=== PATIENT | female | born 1970 | race Caucasian/White ===

== ENCOUNTER 2018-06-21 11:03 | Inpatient (IN) | payer MEDICAID ==
[~2018-06-21] VITALS: Ht 162.6 cm; Wt 55.0 kg
[2018-06-21 11:49] LABS: BASOPHIL % 0.4 % (0-2); PLATELET COUNT 297 x10^3mcL (130-400)
[2018-06-21 12:08] LABS: AMPHETAMINE QUAL UR NONE DETECTED (See below)
[2018-06-21 12:08] LABS: ALBUMIN 3.9 g/dL (3.4-5.0); BILIRUBIN TOTAL 0.1 mg/dL (0.20-1.00); CALCIUM 8.9 mg/dL (8.5-10.1); CARBON DIOXIDE 27.9 mmol/L (21-32); CREATININE SERUM 1.2 mg/dL (0.6-1.0); POTASSIUM SERUM 3.9 mmol/L (3.5-5.1)
[2018-06-21 14:09] VITALS: BP 156/91
[2018-06-21 14:12] VITALS: Ht 162.6 cm; Wt 55.0 kg
[2018-06-21 16:11] LABS: UA SPECIFIC GRAVITY 1.015 (1.005-1.035); microscopic required? YES; urine erythrocyte TRACE (NEGATIVE)
[2018-06-21 16:20] LABS: T3 TOTAL 0.42 ng/mL
[2018-06-21 16:50] LABS: MAGNESIUM 2.2 mg/dL (1.8-2.4); PHOSPHOROUS 3.2 mg/dL (2.5-4.9)
[2018-06-21 16:51] LABS: CHOLESTEROL/HDL RATIO 3.6
[2018-06-21 16:52] LABS: FREE T4 0.21 ng/dL (0.76-1.46); FREE THYROXINE INDEX 0.3 ug/dL (1.4-4.5); T4(THYROXINE) 1.2 ug/dL (4.7-13.3)
[2018-06-21 17:16] VITALS: BP 150/85
[2018-06-21 21:24] VITALS: BP 140/84
[2018-06-22 04:30] LABS: BASOPHIL % 0.8 % (0-2); PLATELET COUNT 257 x10^3mcL (130-400)
[2018-06-22 04:31] LABS: RED CELL DISTRIBUTION WIDTH 16.5 % (11.5-14.5)
[2018-06-22 04:44] VITALS: BP 106/71
[2018-06-22 04:57] LABS: CALCIUM 8.4 mg/dL (8.5-10.1); CARBON DIOXIDE 27.7 mmol/L (21-32); CREATININE SERUM 1.1 mg/dL (0.6-1.0); MAGNESIUM 1.9 mg/dL (1.8-2.4); PHOSPHOROUS 3.1 mg/dL (2.5-4.9); POTASSIUM SERUM 4.1 mmol/L (3.5-5.1)
[2018-06-22 09:13] VITALS: BP 144/96
[2018-06-22 12:30] VITALS: BP 168/118
[2018-06-22 15:09] VITALS: BP 146/76
[2018-06-22 17:06] VITALS: BP 144/80
[2018-06-22 21:16] VITALS: BP 118/79
[2018-06-23] VITALS (8 sets, daily range): BP systolic 141–168; BP diastolic 86–110
[2018-06-23 07:25] LABS: BASOPHIL % 0.6 % (0-2); PLATELET COUNT 290 x10^3mcL (130-400)
[2018-06-23 07:34] LABS: CALCIUM 8.9 mg/dL (8.5-10.1); CARBON DIOXIDE 28.6 mmol/L (21-32); CREATININE SERUM 1.2 mg/dL (0.6-1.0); PHOSPHOROUS 3.3 mg/dL (2.5-4.9); POTASSIUM SERUM 4.3 mmol/L (3.5-5.1)
[2018-06-23] MEDS ORDERED: HYD25 PO (17:53)
[2018-06-23] MEDS ORDERED: TOPROL XL25 MG PO (17:54)
[2018-06-23] MEDS ORDERED: LIPITOR40 MG PO (17:54)
[2018-06-23] MEDS ORDERED: ZESTRIL20 MG PO (17:54)
[2018-06-23] MEDS ORDERED: GOOD SENSE ASPI81 M3 PO (17:55)
== END 2018-06-23 20:42 | disposition short-term general hospital (02) | DRG 190 ==
LOC: ED 11:03 → DU 13:02
PROVIDERS: Emergency Medicine; ADMIT Internal Medicine
DX: I21.4 Non-ST elevation (NSTEMI) myocardial infarction (principal); N17.9 Acute kidney failure, unspecified; E86.1 Hypovolemia; I16.0 Hypertensive urgency; E16.2 Hypoglycemia, unspecified; E78.5 Hyperlipidemia, unspecified; F12.10 Cannabis abuse, uncomplicated; F17.210 Nicotine dependence, cigarettes, uncomplicated; Z68.20 Body mass index [BMI] 20.0-20.9, adult; Z79.82 Long term (current) use of aspirin
CPT/HCPCS: 83880; 84439; 99406; A9500; J1644; J2785; J7030; Q0092

== ENCOUNTER 2019-04-03 00:45 | Emergency (ER) | payer OTHER ==
[~2019-04-03] VITALS: Ht 162.6 cm; Wt 54.9 kg
[~2019-04-03 00:45] MED LIST: GOOD SENSE ASPI81 M3 PO; HYD25 PO; LIPITOR40 MG PO; TOPROL XL25 MG PO; ZESTRIL20 MG PO
[2019-04-03 00:49] VITALS: Ht 162.6 cm; Wt 54.9 kg
[2019-04-03 02:12] LABS: CALCIUM 8.9 mg/dL (8.5-10.1); CARBON DIOXIDE 30.9 mmol/L (21-32); CHLORIDE SERUM 100 mmol/L (98-107); CREATININE SERUM 0.9 mg/dL (0.6-1.0); GFR1 > 60 mL/min; GLUCOSE SERUM 74 mg/dL (74-106); POTASSIUM SERUM 3.9 mmol/L (3.5-5.1); SODIUM SERUM 136 mmol/L (136-145)
[2019-04-03 02:13] LABS: AMPHETAMINE QUAL UR POSITIVE (See below)
[2019-04-03 02:17] LABS: ALBUMIN 3.6 g/dL (3.4-5.0); ALKALINE PHOSPHATASE 124 U/L (46-116); ALT/SGPT 19 U/L (14-59); AST/SGOT 21 U/L (15-37); BILIRUBIN TOTAL 0.24 mg/dL (0.20-1.00); TOTAL PROTEIN, SERUM 8.8 g/dL (6.4-8.2)
[2019-04-03 02:24] LABS: BASOPHIL % 1.6 % (0-2)
[2019-04-03 02:28] LABS: PLATELET COUNT 456 x10^3mcL (130-400); RED CELL DISTRIBUTION WIDTH 17.4 % (11.5-14.5)
[2019-04-03 02:30] LABS: FREE T4 0.22 ng/dL (0.76-1.46)
[2019-04-03 02:34] LABS: FREE THYROXINE INDEX 0.3 ug/dL (1.4-4.5); T4(THYROXINE) 1.4 ug/dL (4.7-13.3)
[2019-04-03 03:18] LABS: T3 TOTAL 0.35 ng/mL
[2019-04-03 03:53] VITALS: BP 160/104
== END 2019-04-03 03:53 | disposition home or self-care (01) ==
LOC: ED 00:45
PROVIDERS: Specialist
DX: R21 Rash and other nonspecific skin eruption (principal); E03.9 Hypothyroidism, unspecified; F15.10 Other stimulant abuse, uncomplicated; F12.10 Cannabis abuse, uncomplicated; Z98.51 Tubal ligation status
CPT/HCPCS: 36415; 84439

== ENCOUNTER 2019-09-07 06:14 | Emergency (ER) | payer SELFPAY ==
[~2019-09-07] VITALS: Ht 160 cm; Wt 55.8 kg
[2019-09-07 06:20] VITALS: Ht 160 cm; Wt 55.8 kg
[2019-09-07 08:29] VITALS: BP 152/95
== END 2019-09-07 08:29 | disposition home or self-care (01) ==
LOC: ED 06:14
DX: K62.89 Other specified diseases of anus and rectum (principal); E03.9 Hypothyroidism, unspecified; Z98.51 Tubal ligation status